=== PATIENT | male | born 1965 | race Caucasian/White ===

== ENCOUNTER 2022-10-21 07:30 | Outpatient (CLI) | payer BC | END 2022-10-21 07:31 | disposition home or self-care (01) | LOC: NM 07:30 | PROVIDERS: ATTEND Specialist | DX: M17.11 Unilateral primary osteoarthritis, right knee (principal); T84.84XA Pain due to internal orthopedic prosthetic devices, implants and grafts, initial encounter; Z96.651 Presence of right artificial knee joint | CPT/HCPCS: 78315; A9503 ==

== ENCOUNTER 2023-09-05 13:13 | Outpatient (CLI) | payer BC | END 2023-09-05 13:14 | disposition home or self-care (01) | LOC: RAD 13:13 | PROVIDERS: ATTEND Internal Medicine Critical Care Medicine | DX: R06.00 Dyspnea, unspecified (principal) | CPT/HCPCS: 71046 ==

== ENCOUNTER 2023-09-09 10:21 | Outpatient (CLI) | payer BC | END 2023-09-09 10:22 | disposition home or self-care (01) | LOC: NM 10:21 | PROVIDERS: ATTEND Internal Medicine Critical Care Medicine | DX: R06.09 Other forms of dyspnea (principal) | CPT/HCPCS: 71046; 78451; A9540 ==